=== PATIENT | female | born 1960 ===

== ENCOUNTER 2021-09-21 20:50 | Emergency (ER) | payer SELFPAY ==
[2021-09-21 21:11] VITALS: BP 123/78
--- NOTE | 2021-09-21 22:32 | Cat Scan Report ---
CT HEAD WITHOUT CONTRAST INDICATION / CLINICAL INFORMATION: Dizziness, fall. TECHNIQUE: All CT scans at this location are performed using CT dose reduction for ALARA by means of automated exposure control. COMPARISON: None available. FINDINGS: BRAIN PARENCHYMA: No acute intracranial hemorrhage. No evidence of recent infarct. No mass effect or midline shift. Generalized atrophy is noted with probable chronic microvascular ischemic changes ang g the periventricular white matter. VENTRICULAR SYSTEM/EXTRA-AXIAL SPACES: Ventricles are normal for age. No extra-axial fluid collection . ORBITS: Normal as visualized. SKELETAL SYSTEM/SOFT TISSUES: There is a large left posterior parietal scalp contusion. PARANASAL SINUSES/MASTOID AIR CELLS: No significant abnormality. ADDITIONAL FINDINGS: None. IMPRESSION: 1. No acute intracranial abnormality. 2. Large left parietal scalp contusion. Signer Name: Terell Lara MD Signed: 09/21/2021 10:27 PM Workstation Name: [id number]
== END 2021-09-22 09:51 | disposition left against medical advice (07) ==
LOC: ED 20:50
DX: Z00.00 Encounter for general adult medical examination without abnormal findings (principal); Z53.21 Procedure and treatment not carried out due to patient leaving prior to being seen by health care provider; W19.XXXA Unspecified fall, initial encounter; Y93.89 Activity, other specified; Y92.89 Other specified places as the place of occurrence of the external cause; Y99.8 Other external cause status
CPT/HCPCS: 70450